=== PATIENT | male | born 1950 | race Caucasian/White ===

== ENCOUNTER 2019-09-25 12:03 | Outpatient (CLI) | payer MEDICARE, SELFPAY ==
--- NOTE | ~2019-09-25 | US_ITS ---
EXAMINATION: US renal BI DATE: 09/25/2019 13:01 INDICATION: Lower abdominal pain, nephrolithiasis and hematuria. TECHNIQUE: Multiple ultrasound grayscale images of the kidneys were obtained. COMPARISON: None. FINDINGS: The right kidney measures 11.0 x 5.1 x 6.5 cm. The left kidney measures 10.7 x 7.0 x 6.4 cm. The kidn eys demonstrate normal echogenicity. 2.0 cm anechoic cephalic cyst at the lower pole of the right kid shubham. There is no hydronephrosis in either kidney. No narrowing renal stones identified. The bladder is normal. Prostatomegaly. IMPRESSION: 1. 2 cm right renal cyst. Otherwise normal kidneys with no hydronephrosis. Reviewed, dictated and finalized at location A.
== END 2019-09-25 12:04 | disposition home or self-care (01) ==
LOC: CHSIMG 12:06
PROVIDERS: PCP Family Medicine; Visit Provider Nurse Practitioner Family
DX: R10.30 Lower abdominal pain, unspecified (principal); R31.9 Hematuria, unspecified
CPT/HCPCS: 76775

== ENCOUNTER 2019-10-17 09:34 | Emergency (ER) | payer MEDICARE, OTHER, SELFPAY ==
--- NOTE | ~2019-10-17 | XR_ITS ---
EXAMINATION: XR abdomen/kub 1V INDICATION: Right ureteral stone TECHNIQUE: Supine views of the abdomen were obtained on 2 radiographs. COMPARISON: CT from today FINDINGS: A 6 mm stone projects in the proximal/mid right ureter projecting just above the right L5 t ransverse process. A 4 mm stone is seen in the upper pole of the right kidney. The bowel gas pattern is normal. Phleboliths are noted in the left pelvis. IMPRESSION: 1. 6 mm stone projecting in the proximal/mid right ureter just above the right L5 transverse process. Reviewed, dictated and finalized at location A.
--- NOTE | ~2019-10-17 | CT_ITS ---
EXAMINATION: CT abdomen pelvis wo con DATE: 10/17/2019 11:30 INDICATION: Right flank pain TECHNIQUE: Computed tomography (CT) of the abdomen and pelvis was performed without intravenous contr ast. The dose-length product (DLP) was 240.48 mGy-cm. Automated exposure control and iterative recons truction technique were employed. COMPARISON: 08/17/2016 FINDINGS: Minimal dependent atelectasis is present in the lung bases. The heart size is normal. The h eart size is normal. Coronary artery stents are noted. The liver, spleen, pancreas, and adrenal gland s are normal. Stones are present in the nondistended gallbladder. There is a 6 mm stone in the proxim al right ureter which causes mild hydronephrosis. A 4 mm nonobstructing stone is seen in the right ki dney upper pole. There are punctate nonobstructing stones of the left kidney lower pole. There is a 2 .1 cm cyst of the right kidney. No pathologically enlarged abdominal or pelvic lymph nodes are identi fied. There is no free intraperitoneal gas or evidence of bowel obstruction. The prostate is moderate ly enlarged. There is mild lumbar spondylosis. IMPRESSION: 1. 6 mm stone in the proximal right ureter causing mild right hydronephrosis. Consider KUB for treatm ent planning purposes. 2. Bilateral nonobstructing nephrolithiasis. 3. Cholelithiasis without evidence of cholecystitis. Reviewed, dictated and finalized at location A. IMPRESSION: 1. 6 mm stone in the proximal right ureter causing mild right hydronephrosis. C onsider KUB for treatment planning purposes. 2. Bilateral nonobstructing nephrolithiasis. 3. Cholelithiasis without evidence of cholecystitis.
[2019-10-17 10:06] VITALS: BP 144/73; PULSE 48; RESP 18; TEMP 36.6; O2SAT 94
--- NOTE | 2019-10-17 10:27 | ED.ABDPAIN ---
HPI - Abdominal Pain General Chief Complaint: Abdominal Pain Stated Complaint: kidney stones Source: patient Mode of arrival: ambulatory Limitations: no limitations History of Present Illness HPI narrative: 68-year-old male complains of suprapubic pain radiating into both sides of his lower back. It started at 6:30 a.m., current pain rated 9/10 it waxes and wanes getting as low as 6/10. The pain is achy like a toothache but at times can be sharp. He had similar pain in August and September. The pain got more severe on September the . Urinalysis nitrate negative. No growth on the urinalysis. He states he took nitrofurantoin for about 5 days or so the pain resolved after a couple days and he remained pain- free until the the recurrence this morning. This morning he has slight discomfort with urination. this pain is associated with a minor discomfort in the inguinal area more on the right than the left. He is wondering if this could be kidney stones. He denies fevers chills lightheadedness body aches nausea vomiting constipation diarrhea. Related Data Home Medications Medication Instructions Recorded Confirmed aspirin 81 mg tablet,delayed 81 mg PO DAILY 06/18/19 10/17/19 release insulin glargine 100 unit/mL 80 unit SUB-Q DAILY ml 06/18/19 10/17/19 subcutaneous solution metoprolol succinate 50 mg 50 mg PO DAILY 06/18/19 10/17/19 tablet,extended release 24 hr Allergies Allergy/AdvReac Type Severity Reaction Status Date / Time adhesive Allergy Intermediate blistering Verified 09/25/19 10:10 of skin caffeine Allergy Intermediate Unknown Verified 09/25/19 10:10 Review of Systems Constitutional: Constitutional: Denies chills and Denies fever(s) ENT: Reports system reviewed and no additional complaints, except as documented Cardiovascular: Cardiovascular: Denies chest pain Respiratory: Respiratory: Denies dyspnea Gastrointestinal: Gastrointestinal: Reports no additional gastrointestinal complaints Genitourinary: Genitourinary: Reports no additional male genitourinary complaints Musculoskeletal: Musculoskeletal: Reports no additional musculoskeletal complaints Integumentary/Breasts: Skin/Breast: Reports system reviewed and no additional complaints, except as docu Neurologic: Reports system reviewed and no additional complaints, except as documented [facility] Past Medical History Medical History (Updated 10/18/19 @ 00:00 by Background Daemon) CAD (coronary artery disease) DM2 (diabetes mellitus, type 2) Hyperlipidemia Hypertension Lower abdominal pain Myocardial infarction 2002 [place] (obstructive sleep apnea) Osteoarthritis Polycythemia Surgical History Surgical History History of coronary angioplasty 2016 History of left knee surgery ACL Reconstruction History of right knee surgery Meniscus Removal History of shoulder surgery Right Shoulder Impingment History of total right knee replacement (TKR) Social History Social History Smoking status: Never smoker Substance use: never Additional living arrangements comments: . No children. 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 : General: Yes no CVA tenderness Penis: Yes normal penis Testes: epididymides normal, no testicular swelling and testicular tenderness (minor, bilateral) Other: Prostate is not enlarged for age. It is nontender, not warm. Back/Spine/Pelvis: Back: no CVA tenderness Skin: General skin exam: normal color Extrem: General: normal to inspection
[2019-10-17 10:44] LABS: Basophils Absolute Auto 0.05 K/mm3 (0.00-0.10); Basophils Percent Auto 0.6 % (0.0-1.0); Eosinophils Absolute Auto 0.23 K/mm3 (0.02-0.50); Eosinophils Percent Auto 2.7 % (1.0-6.0); Hematocrit 50.8 % (37.0-46.0); Hemoglobin 16.9 g/dL (12.4-15.3); Immature Granulocyte Absolute 0.03 K/mm3 (0.00-0.00); Immature Granulocyte Percent A 0.4 % (0.0-0.0); Lymphocytes Absolute Auto 1.26 K/mm3 (1.10-4.50); Mean Corpuscular HGB Conc 33.3 g/dL (32.0-36.0); Mean Corpuscular Volume 87.1 fL (78.0-102.0); Mean Platelet Volume 9.8 fl (8.7-11.0); Monocytes Absolute Auto 0.53 K/mm3 (0.10-0.90); Monocytes Percent Auto 6.3 % (2.0-11.0); Neutrophils Absolute Auto 6.3 K/mm3 (1.7-7.2); Platelet Count Result 192 K/mm3 (150-420); Red Blood Count 5.83 M/mm3 (4.70-6.10); Red Cell Distribution Width 13.4 % (11.6-14.4); White Blood Count 8.4 K/mm3 (4.8-10.8)
[2019-10-17 10:45] LABS: Add Urine Microscopic? YES; Appearance Urine Clear (Clear); Bilirubin Urine Negative (Negative); Blood Urine 2+ (Negative); Color Urine Yellow (Yellow); Glucose Urine UA Negative (Negative); Ketones Urine 1+ (Negative); Leukocyte Esterase Ur Negative (Negative); Nitrate Urine Negative (Negative); Protein Urine Trace (Negative); Specific Grav Ur 1.025 (1.010-1.020); Urobilinogen Urine 0.2 mg/dL (0.2-1.0); pH Urine 5.5 (5.0-8.0)
[2019-10-17] MEDS: MORPHINE SULFATE 4 MG/ML INJ 6 MG IV PUSH (10:46)
[2019-10-17 10:55] LABS: Bacteria Urine Trace /hpf; Mucus Urine Moderate /lpf; WBC Urine 0-3 /hpf (0-3)
[2019-10-17 11:03] LABS: Alanine Aminotransferase 58 U/L (16-63); Albumin Level 3.8 g/dL (3.4-5.0); Alkaline Phosphatase 46 U/L (46-116); Anion Gap 14.3 mmol/L (7-16); Aspartate Amino Transferase 21 U/L (15-37); Bilirubin,Total 0.5 mg/dL (0.00-1.00); Blood Urea Nitrogen 24 mg/dL (7-18); Calcium 9.1 mg/dL (8.5-10.1); Carbon Dioxide 26 mmol/L (21-32); Chloride 106 mmol/L (98-108); Estimated CRCL calculation 59 ml/min; Estimated Glomerular Filt Rate > 60; Glucose 171 mg/dL (70-99); Osmolality Calculated 302 mOsm/kg (285-295); Potassium 4.3 mmol/L (3.5-5.1); Sodium 142 mmol/L (136-145); Total Protein 6.7 g/dL (6.4-8.2)
[2019-10-17 11:09] LABS: Lipase 52 U/L (73-393)
[2019-10-17] MEDS: KETOROLAC 30 MG/ML VIAL (*BKC) IV PUSH (11:31)
--- NOTE | 2019-10-17 13:04 | PC.NURSE ---
CALL PLACED TO DR BECKHAM EXCHANGE - DR ANDINO RETURNS CALL
[2019-10-17 13:20] VITALS: BP 155/79
== END 2019-10-17 13:21 | disposition home or self-care (01) ==
PROVIDERS: Emergency Provider Family Medicine; PCP Family Medicine
DX: N20.0 Calculus of kidney (principal); I25.10 Atherosclerotic heart disease of native coronary artery without angina pectoris; E11.9 Type 2 diabetes mellitus without complications; E78.5 Hyperlipidemia, unspecified; I10 Essential (primary) hypertension
CPT/HCPCS: 36415; 74018; 74176; 80053; 81001; 83690; 85025; 96374; 96375; 99284; J1885; J2270

== ENCOUNTER 2019-10-19 09:37 | Emergency (ER) | payer MEDICARE, OTHER, SELFPAY ==
--- NOTE | ~2019-10-19 | XR_ITS ---
EXAMINATION: XR abdomen/kub 1V DATE: 10/19/2019 11:54 INDICATION: Right-sided ureterolithiasis TECHNIQUE: A supine view of the abdomen on 2 radiographs was obtained. COMPARISON: 10/17/2019 FINDINGS: No significant interval change in a triangular 6 mm stone in the proximal to mid right ureter project ing slightly cephalad to the right transverse process of L5. Unchanged 4 mm stone projecting over the upper pole of the right kidney. No left-sided urolithiasis. Unchanged pattern of small phleboliths i n the left hemipelvis. Normal bowel gas pattern. Lung bases are clear. Heart size is normal. Median s ternotomy wires and mediastinal surgical clips are seen, likely from prior coronary artery bypass gra fting. IMPRESSION: 1. Unchanged 4 mm right renal stone and 6 mm stone in the proximal to mid right ureter. Reviewed, dictated and finalized at location A.
[2019-10-19 09:39] VITALS: BP 144/78; PULSE 69; RESP 16; TEMP 36.6; O2SAT 96
[2019-10-19 09:56] LABS: Basophils Percent Auto 0.4 % (0.2-1.2); Eosinophils Absolute Auto 0.2 K/mm3 (0-0.3); Eosinophils Percent Auto 2.3 % (0-4.4); Hematocrit 49.3 % (42.0-52.0); Hemoglobin 16.6 g/dL (14.0-18.0); Immature Granulocyte Absolute 0.06 K/mm3 (0.00-0.031); Immature Granulocyte Percent A 0.6 % (0-0.5); Lymphocytes Absolute Auto 1.62 K/mm3 (0.9-3.2); Lymphocytes Percent Auto 15.6 % (18.3-44.2); Mean Corpuscular HGB Conc 33.7 g/dl (32-36); Mean Corpuscular Hemoglobin 29.3 pg (26-34); Mean Corpuscular Volume 87.1 fl (80-100); Monocytes Absolute Auto 0.8 K/mm3 (0.1-0.6); Monocytes Percent Auto 7.5 % (2.6-8.5); Neutrophils Absolute Auto 7.7 K/mm3 (1.3-6.7); Neutrophils Percent Auto 73.6 % (45.5-73.1); Platelet Count Result 162 k/mm3 (150-375); Red Blood Count 5.66 M/mm3 (4.6-6.20); Red Cell Distribution Width 13.4 % (11.5-14.5); White Blood Count 10.4 K/mm3 (4.5-10.0)
[2019-10-19 10:02] LABS: Add Urine Microscopic? YES; Appearance Urine Clear (Clear); Bilirubin Urine Negative (Negative); Blood Urine Negative (Negative); Color Urine Amber (Yellow); Glucose Urine UA 1+ mg/dL (Negative); Ketones Urine Negative (Negative); Leukocyte Esterase Ur Negative LEU/UL (Negative); Mucus Urine Rare /lpf; Nitrate Urine Negative (Negative); Protein Urine Negative (Negative); Specific Grav Ur 1.024 (1.001-1.035); Squamous Epithelial Cell Urine Rare /hpf (Few); Urobilinogen Urine Negative mg/dL (<2.0)
[2019-10-19 10:08] LABS: Blood Urea Nitrogen 30 mg/dL (9-20); Calcium 9.4 mg/dL (8.4-10.2); Carbon Dioxide 25 mmol/L (22-30); Chloride 104 mmol/L (98-107); Estimated CRCL calculation 39 ml/min; Estimated Glomerular Filt Rate 43; Glucose 183 mg/dL (75-110); Potassium 4.1 mmol/L (3.4-5.0); Sodium 136 mmol/L (137-145)
--- NOTE | 2019-10-19 10:56 | ED.ABDPAIN ---
HPI - Abdominal Pain General Chief Complaint: Abdominal Pain Stated Complaint: Kidney Stone Pain Time Seen by Provider: 10/19/19 10:32 Source: patient Mode of arrival: ambulatory Limitations: no limitations History of Present Illness HPI narrative: Patient is a 68-year-old male presents to the emergency department with complaint of right flank pain. Patient reports prior history of kidney stones. Patient states he had episode of dark color to his urine in late August for which he took 3 days worth of Cipro he had at home and drink plenty of fluids. Patient had onset of right-sided flank pain, predominantly in the back in early September. Patient states the pain had persisted and was worsening, thus he had a telephone appointment with primary care office. He states they did an ultrasound and a urine sample and put him on nitrofurantoin for prostate infection. Patient had renal ultrasound completed on 09/25/2019 which showed no hydronephrosis or other abnormalities aside from a renal cyst. Urinalysis at that time showed blood and culture was negative for any infection. Patient had worsening of his symptoms 2 days ago and was seen in the emergency department at [facility]. Patient had CT scan completed which showed a 6 mm stone in the proximal right ureter with mild hydronephrosis. Patient was noted to have bilateral nonobstructing nephrolithiases additionally. Patient was planning to call Dr. Longoria's office today to schedule an appointment, but presented to the emergency department here at [place] due to worsening symptoms not alleviated by naproxen and [place] that he took at approximately 6 this morning. MD elicited complaint: flank pain Pertinent past history: kidney stones Onset (ago): month(s) (1.5) Pain Consistency: intermittent and other (now worsening) Location: R flank Radiation: other (right groin) Context: confirms recent antibiotic use and confirms history of similar episodes Associated symptoms: nausea Treatments prior to arrival: NSAIDs and prescription analgesics ([place]) Related Data Home Medications Medication Instructions Recorded Confirmed aspirin 81 mg tablet,delayed 81 mg PO DAILY 06/18/19 10/17/19 release insulin glargine 100 unit/mL 80 unit SUB-Q DAILY ml 06/18/19 10/17/19 subcutaneous solution metoprolol succinate 50 mg 50 mg PO DAILY 06/18/19 10/17/19 tablet,extended release 24 hr Allergies Allergy/AdvReac Type Severity Reaction Status Date / Time adhesive Allergy Intermediate blistering Verified 10/19/19 09:42 of skin caffeine Allergy Intermediate Unknown Verified 10/19/19 09:42 Review of Systems Review of Systems: All systems reviewed & are unremarkable except as noted in HPI and below Gastrointestinal: Gastrointestinal: Reports abdominal pain and Reports nausea Genitourinary: Genitourinary: Reports hematuria Musculoskeletal: Musculoskeletal: Reports back pain [facility] Past Medical History Medical History (Updated 10/19/19 @ 15:04 by Tiffanie Reeves MD) CAD (coronary artery disease) DM2 (diabetes mellitus, type 2) Hyperlipidemia Hypertension Kidney stones Lower abdominal pain Myocardial infarction 2002 [place] (obstructive sleep apnea) Osteoarthritis Polycythemia Surgical History Surgical History History of colonoscopy with polypectomy History of coronary angioplasty 2016 History of left knee surgery ACL Reconstruction History of right knee surgery Meniscus Removal History of shoulder surgery Right Shoulder Impingment History of total right knee replacement (TKR) Social History Social History Smoking status: Never smoker Substance use: never Additional living arrangements comments: . No children. 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
[2019-10-19] MEDS: ONDANSETRON INJ 4 MG/2 ML VIAL IV PUSH (11:15)
[2019-10-19] MEDS: LACTATED RINGERS 1,000 ML 150 ML IV CONT (11:34)
[2019-10-19 12:54] VITALS: BP 131/71; PULSE 60; RESP 16; TEMP 37.1; O2SAT 94
[2019-10-19 15:15] VITALS: BP 120/64; PULSE 56; RESP 16; TEMP 36.8; O2SAT 95
== END 2019-10-19 15:06 | disposition home or self-care (01) ==
PROVIDERS: Emergency Provider Emergency Medicine; PCP Family Medicine
DX: N20.2 Calculus of kidney with calculus of ureter (principal); Z87.442 Personal history of urinary calculi; I25.10 Atherosclerotic heart disease of native coronary artery without angina pectoris; E11.9 Type 2 diabetes mellitus without complications; E78.5 Hyperlipidemia, unspecified; I10 Essential (primary) hypertension; I25.2 Old myocardial infarction; G47.33 Obstructive sleep apnea (adult) (pediatric); M19.90 Unspecified osteoarthritis, unspecified site; D75.1 Secondary polycythemia; Z98.61 Coronary angioplasty status; Z96.651 Presence of right artificial knee joint; Z79.82 Long term (current) use of aspirin; Z79.4 Long term (current) use of insulin
CPT/HCPCS: 36415; 74018; 80048; 81001; 85025; 96361; 96365; 96375; 99284; A9270; J0131; J2405; J3010; J7120

== ENCOUNTER 2019-10-20 01:44 | Day surgery (SDC) | payer MEDICARE, OTHER, SELFPAY ==
[2019-10-19 15:56] VITALS: BMI 28.9
[2019-10-20] VITALS (7 sets, daily range): BP systolic 116–155; BP diastolic 57–80; PULSE 63–92; RESP 12–20; TEMP 36.8–37.1; O2SAT 96–99
--- NOTE | ~2019-10-20 | XR_ITS ---
EXAMINATION: XR abdomen/kub 1V DATE: 10/20/2019 10:48 INDICATION: Nephrolithiasis. Preoperative evaluation. TECHNIQUE: A supine view of the abdomen on 2 radiographs was obtained. COMPARISON: None. FINDINGS: No significant interval change in a triangular 6 mm stone in the proximal to mid right ureter project ing slightly cephalad to the right transverse process of L5. Unchanged 4 mm stone projecting over the upper pole of the right kidney. No left-sided urolithiasis. Unchanged pattern of small phleboliths i n the left hemipelvis. Normal bowel gas pattern. IMPRESSION: 1. Unchanged 4 mm right renal stone and 6 mm stone in the proximal to mid right ureter. Reviewed, dictated and finalized at location A.
--- NOTE | ~2019-10-20 | XR_ITS ---
EXAMINATION: XR stent kub - surgery INDICATION: Right ureteral stone TECHNIQUE: Four intraoperative fluoroscopic images are submitted for review. Fluoroscopy exposure riaz e was 19.9 seconds. The DAP for this procedure was [id number] mGym2. COMPARISON: None available FINDINGS: Fluoroscopic images demonstrate placement of a right internal ureteral stent in expected po sition. Please refer to procedure note for full details. IMPRESSION: 1. Right internal ureteral stent in expected position. Please refer to procedure note for full detail s. Reviewed, dictated and finalized at location A. IMPRESSION: 1. Right internal ureteral stent in expected position. Please refer to procedur e note for full details.
[2019-10-20] MEDS: LACTATED RINGERS 1,000 ML 30 ML IV CONT (10:10)
[2019-10-20 10:12] LABS: Glucose Point of Care 95 (65-105)
[2019-10-20] MEDS: ONDANSETRON INJ 4 MG/2 ML VIAL IV PUSH (10:33)
--- NOTE | 2019-10-20 10:41 | WPDANESEPPF ---
Anes - Initial Pre Proc Eval Procedure: Operation Date: 10/20/19 12:00 Proposed Procedures p Cystoscopy, Right Stent Placement - Manpreet Patel MD Date/Time: 10/20/19 10:41 Surgeon: Manpreet Patel MD Pre Op Diagnosis: Right Kidney Stone Patient Data Age: 68 Gender: M Height: 5 ft 8 in Weight: 86.36 kg Allergies Allergy/AdvReac Type Severity Reaction Status Date / Time adhesive Allergy Intermediate blistering Verified 10/19/19 09:42 of skin caffeine Allergy Intermediate Unknown Verified 10/19/19 09:42 Home Medications Medication Instructions Recorded Confirmed Type isosorbide mononitrate 60 mg 90 mg PO DAILY #135 tablet 05/11/19 10/19/19 Rx tablet,extended release 24 hr lisinopril 10 mg tablet 10 mg PO DAILY #90 tablet 05/11/19 10/19/19 Rx metformin 500 mg tablet 500 mg PO BID #180 tablet 05/11/19 10/19/19 Rx aspirin 81 mg tablet,delayed 81 mg PO DAILY 06/18/19 10/19/19 History release insulin glargine 100 unit/mL 80 unit SUB-Q HS ml 06/18/19 10/19/19 History subcutaneous solution metoprolol succinate 50 mg 50 mg PO DAILY 06/18/19 10/19/19 History tablet,extended release 24 hr lovastatin 40 mg tablet 40 mg PO DAILY #90 tablet 06/29/19 10/19/19 Rx clopidogrel 75 mg tablet 75 mg PO DAILY #90 tablet 07/10/19 10/19/19 Rx sitagliptin 100 mg tablet See Rx Instructions .ROUTE 10/05/19 10/19/19 Rx .COMPLEX #90 tablet hydrocodone-acetaminophen [[place]] 2 tablet PO Q6H PRN #16 tablet 10/17/19 10/19/19 Rx tamsulosin 0.4 mg capsule 0.4 mg PO DAILY #90 cap 10/19/19 10/19/19 Rx Laboratory Tests 10/20/19 10:09 POC Capillary Glucose 95 mg/dl mg/dl (65-105) Patient hx anesthesia problems: none Family hx anesthesia problems: none PMFSH Past Medical History Medical History CAD (coronary artery disease) DM2 (diabetes mellitus, type 2) Hyperlipidemia Hypertension Kidney stones Lower abdominal pain Myocardial infarction 2002 [place] (obstructive sleep apnea) Osteoarthritis Polycythemia Surgical History Surgical History History of colonoscopy with polypectomy History of coronary angioplasty 2016 History of left knee surgery ACL Reconstruction History of right knee surgery Meniscus Removal History of shoulder surgery Right Shoulder Impingment History of total right knee replacement (TKR) Family History Family History Mother Diabetes mellitus Father Heart disease Social History Social History Smoking status: Never smoker Substance use: never Additional living arrangements comments: . No children. 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 Questions were solicited and answers provided to the satisfaction of the patient/family/POA.
--- NOTE | 2019-10-20 10:53 | SUR.PREOP ---
TO XRAY AT 1045 FOR KUB, RETURNED AT 1051
[2019-10-20] MEDS: ceFAZolin SODIUM 1 GM VIAL 2 GM IV PUSH (12:15)
[2019-10-20] MEDS: LIDOCAINE HCL 2% GEL UROJET 10 ML PKG MUCOUS MEM (12:16)
--- NOTE | 2019-10-20 12:29 | P.OP_ITS ---
Procedure Note - Detailed Date of procedure: 10/20/19 Pre-op diagnosis: Right Kidney Stone Right ureteral calculus 6 mm Post-op diagnosis: same Procedure performed: Cystoscopy, right ureteral stent placement 4.8 Armenian contour Description of procedure: Patient was taken to the operative suite. He was correctly identified. Once anesthesia was obtained was placed in the dorsal lithotomy position and prepped and draped in the usual sterile fashion. Twenty- two Armenian scope inserted into the bladder. There are no tumors noted. The right ureteral orifice was cannulated with a guidewire. It obviously it met some resistance at the stone. Once we were able to manipulate the wire past the stone we noted purulence coming from the ureteral orifice. At this point we decided to simply place a stent. A 4.8 contour stent was then placed with the proximal end coiled in the renal pelvis and the distal end in the bladder. Bladder was drained. 2% viscous lidocaine was inserted into the urethra. Patient is taken recovery stable condition. Plan is to allow things to settle down he will be discharged home with pain meds and antibiotics. Will obtain a culture in about 2-3 days. He will need a repeat ureteroscopy with holmium laser stone extraction at a later point time. 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 That will preclude us from doing lithotripsy Anesthesia: [place] Surgeon: Manpreet Patel MD Drains: Yes Packing: No Pathology: none sent Complications: No immediate complications Condition: stable Disposition: PACU
[2019-10-20 13:03] LABS: Glucose Point of Care 79 (65-105)
== END 2019-10-20 13:55 | disposition home or self-care (01) ==
PROVIDERS: PCP Family Medicine; Visit Provider Urology
PROC: (CPT 52352; principal; 2019-10-20 12:00)
DX: N20.0 Calculus of kidney (principal); I25.10 Atherosclerotic heart disease of native coronary artery without angina pectoris; I10 Essential (primary) hypertension; I25.2 Old myocardial infarction; E78.5 Hyperlipidemia, unspecified; E11.9 Type 2 diabetes mellitus without complications; G47.33 Obstructive sleep apnea (adult) (pediatric); M19.90 Unspecified osteoarthritis, unspecified site; Z79.82 Long term (current) use of aspirin; Z79.02 Long term (current) use of antithrombotics/antiplatelets; Z79.4 Long term (current) use of insulin
CPT/HCPCS: 52332; 74018; A9270; C1758; C1769; C2617; J0690; J1100; J2001; J2405; J2704; J3010; J7120

== ENCOUNTER 2019-11-07 00:52 | Outpatient (CLI) | payer MEDICARE, OTHER, SELFPAY ==
[2019-11-07 16:39] LABS: SARS-CoV-2 RNA PCR Negative
== END 2019-11-07 00:53 | disposition home or self-care (01) ==
LOC: ANHCOVIDDT 00:52
PROVIDERS: PCP Family Medicine; Visit Provider Urology
DX: Z01.818 Encounter for other preprocedural examination (principal); Z11.59 Encounter for screening for other viral diseases
CPT/HCPCS: 87635; C9803; U0003

== ENCOUNTER 2019-11-09 10:39 | Outpatient (CLI) | payer MEDICARE, OTHER, SELFPAY ==
--- NOTE | 2019-11-09 10:41 | ECG_ITS ---
Measurements Intervals [place] Rate: 67 P: 37 FL: 193 QRS: 74 QRSD: 102 T: 31 QT: 378 QTc: 400 Interpretive Statements SINUS RHYTHM CONSIDER INFERIOR INFARCT, AGE INDETERMINATE BORDERLINE T WAVE ABNORMALITY- ANTERIOR LEADS ABNORMAL ECG Electronically Signed On 11-09-2019 11:12:13 CDT by Govind Vargas D.O.
== END 2019-11-09 10:40 | disposition home or self-care (01) ==
LOC: ANHSURGERY 10:41
PROVIDERS: PCP Family Medicine; Visit Provider Urology
DX: Z01.810 Encounter for preprocedural cardiovascular examination (principal); I10 Essential (primary) hypertension; R94.31 Abnormal electrocardiogram [ECG] [EKG]
CPT/HCPCS: 93005

== ENCOUNTER 2019-11-10 01:07 | Day surgery (SDC) | payer MEDICARE, OTHER, SELFPAY ==
[2019-11-06 12:43] VITALS: BMI 28.8
[2019-11-10] VITALS (8 sets, daily range): BP systolic 103–153; BP diastolic 50–77; PULSE 51–69; RESP 12–16; TEMP 36.1–36.6; O2SAT 95–100
--- NOTE | ~2019-11-10 | XR_ITS ---
EXAMINATION: XR retrograde pyelo w/stent RT DATE: 11/10/2019 13:53 INDICATION: Right internal ureteral stent placement TECHNIQUE: Fluoroscopic images from a right internal ureteral stent placement are submitted for vadim pickett 12 seconds of fluoroscopy time. 7 fluoroscopic images. FINDINGS: There is a right double-J internal ureteral stent projecting in expected position, with proximal Lincoln loop at the level of the renal pelvis and distal loop in the pelvis within the bladder lumen. IMPRESSION: 1. Right internal ureteral stent placement. Please refer to real-time procedural findings for namita echeverria. Reviewed, dictated and finalized at location A. IMPRESSION: 1. Right internal ureteral stent placement. Please refer to real-time procedu ral findings for details.
--- NOTE | 2019-11-10 11:12 | WPDHPUPDATE1 ---
History and Physical Update Update Date/Time: 11/10/19 11:12 History and Physical has been reviewed, including an updated exam of the patient. There are NO changes in the patient's condition. Risks, benefits, and alternatives have been discussed and questions answered. Patient agrees to proceed with procedure.
[2019-11-10] MEDS: LACTATED RINGERS 1,000 ML 30 ML IV CONT ×2 (11:40→13:57)
[2019-11-10 11:43] LABS: Glucose Point of Care 107 (65-105)
--- NOTE | 2019-11-10 12:10 | WPDANESEPPF ---
Anes - Initial Pre Proc Eval Procedure: Operation Date: 11/10/19 14:00 Proposed Procedures p Cystoscopy, Right Retrograde Pyelogram, Right Ureteroscopy, Right Stent Exchange - Manpreet Patel MD s With Holmium Laser - Manpreet Patel MD Date/Time: 11/10/19 12:10 Surgeon: Manpreet Patel MD Pre Op Diagnosis: right ureteral stone Patient Data Age: 68 Gender: M Height: 5 ft 8 in Weight: 84 kg Last Vital Signs Temp 36.6 C 11/10/19 11:53 Pulse 65 11/10/19 11:53 Resp 16 11/10/19 11:53 BP 103/50 L 11/10/19 11:53 Pulse Ox 96 11/10/19 11:53 Allergies Allergy/AdvReac Type Severity Reaction Status Date / Time caffeine Allergy Severe THROAT Verified 11/10/19 11:26 SWELLING ,HIVES adhesive Allergy Intermediate blistering Verified 11/10/19 11:26 of skin Home Medications Medication Instructions Recorded Confirmed Type lisinopril 10 mg tablet 10 mg PO DAILY #90 tablet 05/11/19 11/10/19 Rx metformin 500 mg tablet 500 mg PO BID #180 tablet 05/11/19 11/10/19 Rx aspirin 81 mg tablet,delayed 81 mg PO DAILY 06/18/19 11/10/19 History release insulin glargine 100 unit/mL 80 unit SUB-Q HS ml 06/18/19 11/10/19 History subcutaneous solution metoprolol succinate 50 mg 50 mg PO DAILY 06/18/19 11/10/19 History tablet,extended release 24 hr clopidogrel 75 mg tablet 75 mg PO DAILY #90 tablet 07/10/19 11/10/19 Rx tamsulosin 0.4 mg capsule 0.4 mg PO DAILY #90 cap 10/19/19 11/10/19 Rx Januvia 100 mg PO DAILY 11/06/19 11/10/19 History coQ10 (ubiquinol) 100 mg PO DAILY 11/06/19 11/10/19 History fluticasone propionate [Flonase 2 spray INTRANASAL DAILY 11/06/19 11/10/19 History Allergy Relief] isosorbide mononitrate 90 mg PO HS 11/06/19 11/10/19 History lovastatin 40 mg PO HS 11/06/19 11/10/19 History multivitamin,nd-rlcu-sedgvmsa 1 tablet PO DAILY 11/06/19 11/10/19 History [Complete Multivitamin] omega 0-skt-xms-fish oil [Fish Oil] 1 cap PO DAILY 11/06/19 11/10/19 History cephalexin 500 mg PO BID 11/10/19 11/10/19 History Laboratory Tests 11/10/19 11:36 POC Capillary Glucose 107 mg/dl mg/dl (65-105) Patient hx anesthesia problems: none Family hx anesthesia problems: none PMFSH Social History Social History Smoking status: Never smoker Substance use: never Additional living arrangements comments: . No children. 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 Questions were solicited and answers provided to the satisfaction of the patient/family/POA.
[2019-11-10] MEDS: ceFAZolin 2 GM/D5W 50 ML 2 GM/50 ML BAG IVPB (13:00)
[2019-11-10] MEDS: LIDOCAINE HCL 2% GEL UROJET 10 ML PKG MUCOUS MEM (13:18)
--- NOTE | 2019-11-10 13:52 | P.OP_ITS ---
Procedure Note - Detailed Date of procedure: 11/10/19 Pre-op diagnosis: right ureteral stone Post-op diagnosis: same Procedure performed: Cystoscopy, right retrograde pyelogram, right ureteroscopy with holmium laser, stone extraction, right ureteral stent exchange 4.8 Martiniquais Description of procedure: Patient was taken to the operative suite and correctly identified. He was placed in the dorsal lithotomy position once anesthesia was obtained. Nineteen Martiniquais scope was inserted into the bladder. The previously placed stent was grasped and brought out the meatus. A guidewire was passed through this. The ureteral access sheath was then inserted. Mini flexible ureteral scope was passed up the sheath and the stone was visualized. It was too large to retrieve 1 piece. Using a 200 micron fiber the stone was lasered into multiple pieces. These were extracted and sent for analysis. Reinspection revealed no residual ureteral stones. Pyelogram was then performed to confirm placement of the stent. A 4.8 contour stent was then placed with the proximal end coiled in the renal pelvis and the distal in the bladder. 2% viscous lidocaine was inserted in the urethra after the bladder was drained. Patient is taken recovery in stable condition. We discharged home with pain meds antibiotic. A follow-up in a week's time for stent removal. Call for that appointment. Anesthesia: GLMA Surgeon: Manpreet Patel MD Drains: Yes Packing: No Pathology: yes Complications: No immediate complications Condition: stable Disposition: PACU
[2019-11-10 14:43] LABS: Glucose Point of Care 71 (65-105)
== END 2019-11-10 15:50 | disposition home or self-care (01) ==
PROVIDERS: PCP Family Medicine; Visit Provider Urology
PROC: (CPT 52352; principal; 2019-11-10 14:00)
PROC: (CPT 52356; 2019-11-10 14:00)
DX: N20.1 Calculus of ureter (principal)
CPT/HCPCS: 52356; 74420; 82365; 88300; A9270; C1769; C1894; C2617; J0690; J1100; J2250; J2405; J2704; J3010; J7120; Q9966

== ENCOUNTER 2020-07-04 10:37 | Outpatient (CLI) | payer MEDICARE, OTHER, SELFPAY ==
--- NOTE | ~2020-07-04 | XR_ITS ---
XR abdomen/kub 1V DATE: 07/04/2020 10:54 INDICATION: Kidney calculus TECHNIQUE: AP projection, 2 views COMPARISON: 10/19/2019 KUB 10/17/[address] abdomen pelvis FINDINGS: Approximately 4 mm calcified stone is noted overlying the upper pole of the right kidney. P reviously reported right ureteral 6 mm calcified stone is no longer identified and presumably has pas sed. The psoas shadows are intact. No visceromegaly is evident. No bowel obstruction. Included skeletal structures are unremarkable other than some degenerative spurring of the thoracic s pine. IMPRESSION: 4 mm upper pole right renal calcified nonobstructing calculus Interval resolution of 6 mm calcified right mid ureteral calculus since 10/20/2019 Reviewed, dictated and finalized at Location A. Reviewed, dictated and finalized at location A. [facility] IMPRESSION: 4 mm upper pole right renal calcified nonobstructing calculus Interval resolution of 6 mm calcified right mid ureteral calculus since 10/20/19 20
== END 2020-07-04 10:38 | disposition home or self-care (01) ==
PROVIDERS: PCP Family Medicine; Visit Provider Urology
DX: N20.0 Calculus of kidney (principal)
CPT/HCPCS: 74018

== ENCOUNTER 2020-07-18 07:50 | Outpatient (CLI) | payer MEDICARE, SELFPAY ==
[2020-07-18 08:01] LABS: Hematocrit 51.8 % (37.0-46.0); Mean Corpuscular HGB Conc 32.8 g/dL (32.0-36.0); Mean Corpuscular Hemoglobin 28.6 pg (27.0-31.0); Mean Corpuscular Volume 87.1 fL (78.0-102.0); Mean Platelet Volume 9.9 fl (8.7-11.0); Platelet Count Result 216 K/mm3 (150-420); Red Blood Count 5.95 M/mm3 (4.70-6.10); Red Cell Distribution Width 13.4 % (11.6-14.4); White Blood Count 9.2 K/mm3 (4.8-10.8)
[2020-07-18 08:36] LABS: Hemoglobin A1C 5.6 % (<5.7)
== END 2020-07-18 07:51 | disposition home or self-care (01) ==
PROVIDERS: PCP Family Medicine; Visit Provider Family Medicine
DX: E11.9 Type 2 diabetes mellitus without complications (principal)
CPT/HCPCS: 36415; 83036; 85027

== ENCOUNTER 2022-01-09 07:17 | Outpatient (CLI) | payer MEDICARE, SELFPAY ==
[2022-01-09 07:43] LABS: Hemoglobin A1C 6.8 % (<5.7)
[2022-01-09 08:15] LABS: MALB Creatinine Ratio 24.3 mg/g (0-30)
[2022-01-09 08:25] LABS: Alanine Aminotransferase 100 U/L (16-63); Albumin Level 3.9 g/dL (3.4-5.0); Alkaline Phosphatase 60 U/L (46-116); Anion Gap 10 mmol/L (8-16); Aspartate Amino Transferase 34 U/L (15-37); Bilirubin,Total 0.6 mg/dL (0.00-1.00); Blood Urea Nitrogen 20 mg/dL (7-18); Calcium 9.1 mg/dL (8.5-10.1); Carbon Dioxide 27 mmol/L (21-32); Chloride 106 mmol/L (98-108); Cholesterol 140 mg/dL (0-200); Estimated Glomerular Filt Rate > 60; Glucose 129 mg/dL (70-99); HDL Direct 31 mg/dL (40-60); LDL Cholesterol Calculated 76 mg/dL (<130); Osmolality Calculated 300 mOsm/kg (285-295); Potassium 4.2 mmol/L (3.5-5.1); Sodium 143 mmol/L (136-145); Total Protein 6.7 g/dL (6.4-8.2); Triglycerides 163 mg/dL (0-150)
== END 2022-01-09 07:18 | disposition home or self-care (01) ==
LOC: CHSLAB 07:20
PROVIDERS: PCP Family Medicine; Visit Provider Family Medicine
DX: E11.9 Type 2 diabetes mellitus without complications (principal)
CPT/HCPCS: 36415; 80053; 80061; 82043; 83036

== ENCOUNTER 2022-05-17 15:21 | Outpatient (CLI) | payer MEDICARE, OTHER, SELFPAY ==
--- NOTE | ~2022-05-17 | XR_ITS ---
Lumbosacral Spine: AP and lateral views Clinical History: Pain Findings: The normal lordotic curve is maintained. The vertebral bodies and posterior elements are i ntact. The intervertebral disc spaces are preserved. Facet joint degenerative changes are present fr om L3 through S1. The sacroiliac joints are normally outlined. Impression: Facet joint degenerative changes, as detailed above. Reviewed, dictated and finalized at location [] CULTURAL RESEARCH ENGINEER Impression: Facet joint degenerative changes, as detailed above.
== END 2022-05-17 15:22 | disposition home or self-care (01) ==
LOC: CHSIMG 15:24
PROVIDERS: PCP Family Medicine; Visit Provider Family Medicine
DX: M54.50 Low back pain, unspecified (principal)
CPT/HCPCS: 72100

== ENCOUNTER 2023-06-28 11:40 | Outpatient (CLI) | payer MEDICARE, SELFPAY ==
[2023-06-28 12:44] LABS: Hemoglobin A1C 7.1 % (<5.7)
[2023-06-28 12:48] LABS: Creatinine Urine 166.08 mg/dL (40-278)
[2023-06-28 12:53] LABS: MALB Creatinine Ratio 91.6 mg/g (0-30); Microalbumin Urine Random 152.2 mg/L
[2023-06-28 13:08] LABS: Alanine Aminotransferase 110 U/L (16-63); Albumin Level 3.8 g/dL (3.4-5.0); Alkaline Phosphatase 62 U/L (46-116); Anion Gap 11 mmol/L (8-16); Aspartate Amino Transferase 47 U/L (15-37); Bilirubin,Total 0.6 mg/dL (0.00-1.00); Blood Urea Nitrogen 18 mg/dL (7-18); Calcium 9.4 mg/dL (8.5-10.1); Carbon Dioxide 27 mmol/L (21-32); Chloride 105 mmol/L (98-108); Estimated Glomerular Filt Rate > 60; Glucose 198 mg/dL (70-99); Osmolality Calculated 303 mOsm/kg (285-295); Potassium 4.7 mmol/L (3.5-5.1); Sodium 143 mmol/L (136-145); Total Protein 6.9 g/dL (6.4-8.2)
== END 2023-06-28 11:41 | disposition home or self-care (01) ==
LOC: CHSLAB 11:41
PROVIDERS: PCP Family Medicine; Visit Provider Family Medicine
DX: E11.9 Type 2 diabetes mellitus without complications (principal)
CPT/HCPCS: 36415; 80053; 82043; 83036

== ENCOUNTER 2023-07-05 08:23 | Outpatient (CLI) | payer MEDICARE, OTHER, SELFPAY ==
--- NOTE | ~2023-07-05 | US_ITS ---
Limited Abdominal Sonogram: Real-time sonographic imaging of the right upper quadrant was performed. Clinical History: Abnormal liver enzyme levels Findings: The liver appears echogenic, with no evidence of mass lesion or bile duct dilatation. Main portal vein demonstrates normal direction of flow. The gallbladder is well distended, and contains a small gallstone versus gallbladder polyp. No gallbladder wall thickening. The common bile duct measu res 4 mm. The visualized pancreas, aorta, and IVC are unremarkable. Impression: Single small gallstone versus gallbladder polyp. Diffuse fatty infiltration of liver. Reviewed, dictated and finalized at location M. CUTTER Impression: Single small gallstone versus gallbladder polyp. Diffuse fatty infiltration of liver.
[2023-07-09 15:11] LABS: Hepatitis A Antibody IgM Nonreactive; Hepatitis B Core Antibody Nonreactive (Nonreactive); Hepatitis B Surface Antigen Nonreactive (Nonreactive); Hepatitis C Virus Antibody Nonreactive
== END 2023-07-05 08:24 | disposition home or self-care (01) ==
PROVIDERS: PCP Family Medicine; Visit Provider Family Medicine
DX: R74.01 Elevation of levels of liver transaminase levels (principal); K76.0 Fatty (change of) liver, not elsewhere classified
CPT/HCPCS: 36415; 76705; 80074

== ENCOUNTER 2023-10-03 10:01 | Emergency (ER) | payer MEDICARE, OTHER, SELFPAY ==
--- NOTE | ~2023-10-03 | CT_ITS ---
EXAMINATION: CT abdomen pelvis wo con DATE: 10/03/2023 10:32 INDICATION: Left flank pain. Status post trauma. TECHNIQUE: Computed tomography (CT) of the abdomen and pelvis was performed without intravenous contr ast. The dose-length product was 807.01 mGy-cm. Automated exposure control and iterative reconstructi on technique were employed. COMPARISON: CT dated 10/17/2019 FINDINGS: There is bilateral lower lobe atelectasis. Heart size normal. There is atherosclerosis of t he aorta and coronary arteries. No significant pleural or pericardial effusion. There are gallstones. Fatty infiltration of the liver. The spleen, pancreas, adrenal glands are unremarkable. There are bi lateral nonobstructing renal stones. There are right renal cysts. Nonobstructive bowel gas pattern. N o free air or free fluid. No significant vascular abnormality. No lymphadenopathy. Mild lower thoraci c and lumbar spondylosis. IMPRESSION: 1. No acute abdominal abnormality. 2: Nonobstructing bilateral nephrolithiasis. Reviewed, dictated and finalized at location B.
[2023-10-03 10:01] VITALS: BP 129/71; PULSE 68; RESP 17; TEMP 36.9; O2SAT 96
--- NOTE | 2023-10-03 10:10 | PC.NURSE ---
lab at bedside.
--- NOTE | 2023-10-03 10:20 | PC.NURSE ---
patient being taken down to Ct.
[2023-10-03 10:30] VITALS: BP 116/68; PULSE 60; RESP 17; O2SAT 94
--- NOTE | 2023-10-03 10:34 | PC.NURSE ---
Patient back in room from Ct.
[2023-10-03 10:36] LABS: Basophils Absolute Auto 0.06 K/mm3 (0.00-0.10); Basophils Percent Auto 0.7 % (0.0-1.0); Eosinophils Absolute Auto 0.26 K/mm3 (0.02-0.50); Eosinophils Percent Auto 3.2 % (1.0-6.0); Hemoglobin 16.3 g/dL (12.4-15.3); Immature Granulocyte Absolute 0.04 K/mm3 (0.00-0.00); Immature Granulocyte Percent A 0.5 % (0.0-0.0); Lymphocytes Absolute Auto 1.63 K/mm3 (1.10-4.50); Lymphocytes Percent Auto 20.2 % (18.0-42.0); Mean Corpuscular HGB Conc 32.6 g/dL (32-36); Mean Corpuscular Hemoglobin 28.2 pg (27.0-31.0); Mean Corpuscular Volume 86.4 fL (78.0-102.0); Mean Platelet Volume 10.5 fl (8.7-11.0); Monocytes Absolute Auto 0.62 K/mm3 (0.10-0.90); Monocytes Percent Auto 7.7 % (2.0-11.0); Neutrophils Absolute Auto 5.46 K/mm3 (1.70-7.20); Neutrophils Percent Auto 67.7 % (50.0-70.0); Platelet Count Result 204 K/mm3 (150-420); Red Blood Count 5.79 M/mm3 (4.70-6.10); Red Cell Distribution Width 13.5 % (11.6-14.4); White Blood Count 8.1 K/mm3 (4.8-10.8)
[2023-10-03] MEDS: SODIUM CHLORIDE 0.9% IV 1,000 ML 999 ML IV CONT (10:42)
[2023-10-03] MEDS: KETOROLAC 30 MG/ML VIAL (*BKC) IV PUSH (10:43)
--- NOTE | 2023-10-03 10:59 | ED.BACK ---
HPI - Back Pain/Injury General Chief Complaint: Back Pain/Injury Stated Complaint: back pain Time Seen by Provider: 10/03/23 10:07 Source: patient and family Mode of arrival: ambulatory Limitations: no limitations History of Present Illness HPI Narrative: this is a 72-year-old male with history of diabetes was mowing his lawn and a large tree branch fell striking him on the left flank area there is a the bruising and pain, rates his pain about a 7/10 has taken some [id number]-xmg-fujumcp medication with minimal relief this occurred yesterday, there is no shortness of breath no abdominal pain no dysuria or hematuria no fever chills or chest pain no other injuries. MD elicited complaint: back pain and back injury Onset (ago): day(s) Timing: constant Severity: moderate Pain scale (0-10): 7 Quality: dull and aching Location: left flank Radiation: none Exacerbating factors: movement Related Data Home Medications Medication Instructions Recorded Confirmed aspirin 81 mg tablet,delayed 81 mg PO DAILY 06/18/19 10/03/23 release (Adult Low Dose Aspirin) multivitamin,ep-lheu-eyjcpdpv 1 tablet PO DAILY 11/06/19 10/03/23 (Complete Multivitamin tablet) omega 2-mum-mxm-fish oil 1,000 mg 1 cap PO DAILY 11/06/19 10/03/23 (120 mg-180 mg) capsule (Fish Oil) Allergies Allergy/AdvReac Type Severity Reaction Status Date / Time caffeine Allergy Severe THROAT Verified 10/03/23 10:12 SWELLING ,HIVES adhesive Allergy Intermediate blistering Verified 10/03/23 10:12 of skin Review of Systems Review of Systems: All systems reviewed & are unremarkable except as noted in HPI and below PMFSH Past Medical History Medical History (Updated 10/03/23 @ 11:03 by Jeffy Diego MD) CAD (coronary artery disease) DM2 (diabetes mellitus, type 2) Hyperlipidemia Hypertension Kidney stones Lower abdominal pain Myocardial infarction 2002 AINSLEY (obstructive sleep apnea) Osteoarthritis Polycythemia Surgical History Surgical History History of colonoscopy with polypectomy History of coronary angioplasty 2016 History of left knee surgery ACL Reconstruction History of right knee surgery Meniscus Removal History of shoulder surgery Right Shoulder Impingment History of total right knee replacement (TKR) Family History Family History Mother Diabetes mellitus Father Heart disease Social History Social History Smoking status: Never smoker Substance use: never Living arrangements: with family Additional living arrangements comments: . No children. Occupation/Education: retired Additional occupation/education comments: Prior Occupation: Pharmacist @ [employer] Gender identity (if verbalized by the patient): Male Exam Const: General: healthy appearing, no acute distress and alert Nutritional Appearance: well nourished Orientation/consciousness: patient oriented x3 Limitations: no limitations Neck: Neck: normal visual inspection, no lymphadenopathy and no meningeal signs Chest: Chest palpation & inspection: normal inspection of the chest Resp: Effort & Inspection: normal respiratory effort Auscultation: clear to auscultation bilaterally Cardio: Rate: regular rate Rhythm: regular rhythm GI: GI Palp: Yes Soft to palpation Auscultation: normal bowel sounds : General: Yes CVA tenderness Other: Bruising left flank area Back/Spine/Pelvis: Back: CVA tenderness Skin: Wounds: wounds noted Neuro: General: patient oriented x3, moves all extremities and no meningeal signs Course Course Emergency Course: patient received IV fluids, and IV Toradol for pain control CT scan performed which shows no acute abnormalities. Labs obtained and reviewed patient did receive IV fluids. Vital Signs Vital s
[2023-10-03 11:00] VITALS: BP 115/65; PULSE 62; RESP 17; O2SAT 95
[2023-10-03 11:04] LABS: Alanine Aminotransferase 79 U/L (16-63); Albumin Level 3.8 g/dL (3.4-5.0); Alkaline Phosphatase 62 U/L (46-116); Anion Gap 6 mmol/L (4-12); Aspartate Amino Transferase 28 U/L (15-37); Bilirubin,Total 0.5 mg/dL (0.00-1.00); Blood Urea Nitrogen 23 mg/dL (7-18); Calcium 9.5 mg/dL (8.5-10.1); Carbon Dioxide 28 mmol/L (21-32); Chloride 107 mmol/L (98-108); Creatine Kinase 59 U/L (39-308); Estimated Glomerular Filt Rate > 60; Glucose 175 mg/dL (70-99); Osmolality Calculated 299 mOsm/kg (285-295); Potassium 4.3 mmol/L (3.5-5.1); Sodium 141 mmol/L (136-145); Total Protein 6.9 g/dL (6.4-8.2)
--- NOTE | 2023-10-03 11:15 | PC.NURSE ---
Erp made aware patient still hasn't urinated. patient is to be discharged. no longer need urine sample.
--- NOTE | 2023-10-03 11:23 | PC.NURSE ---
Patient to finish IVF prior to discharge.
[2023-10-03 11:30] VITALS: BP 105/59; PULSE 60; RESP 17; O2SAT 95
[2023-10-03 11:47] VITALS: BP 114/64; PULSE 63; RESP 17; O2SAT 95
== END 2023-10-03 11:47 | disposition home or self-care (01) ==
PROVIDERS: Emergency Provider Emergency Medicine; PCP Family Medicine
DX: S30.0XXA Contusion of lower back and pelvis, initial encounter (principal); W20.8XXA Other cause of strike by thrown, projected or falling object, initial encounter; I25.10 Atherosclerotic heart disease of native coronary artery without angina pectoris; E11.9 Type 2 diabetes mellitus without complications; I10 Essential (primary) hypertension; E78.5 Hyperlipidemia, unspecified; I25.2 Old myocardial infarction; G47.33 Obstructive sleep apnea (adult) (pediatric); Z79.82 Long term (current) use of aspirin; Z79.02 Long term (current) use of antithrombotics/antiplatelets; Z79.4 Long term (current) use of insulin; Z79.84 Long term (current) use of oral hypoglycemic drugs
CPT/HCPCS: 36415; 74176; 80053; 82550; 85025; 96361; 96374; 99284; J1885; J7030

== ENCOUNTER 2024-07-08 07:56 | Outpatient (CLI) | payer MEDICARE, OTHER, SELFPAY ==
--- OUTSIDE RECORDS SUMMARY | 2024-07-08 08:01 | XMS_ITS | Clinical Summary ---
Author Organization [facility] [address] Address [address] [place] [address] Care Team Providers Care Primary Products Inspectors Name Role Phone MichealblancaJasonh Primary Care Provider Allergies Active Allergy Reactions Criticality Noted Date Comments Caffeine Hives Medium Medications fluticasone (FLONASE) 50 mcg/actuation nasal spray inhale 1 spray by intranasal route 2 times every day in each nostril 0 spray 0 5 Active SITagliptin (JANUVIA) 100 mg tablet take 1 tablet by oral route every day 0 0 5 Active lovastatin (MEVACOR) 40 mg tablet take 1 tablet by oral route every day with the evening meal 0 0 5 Active insulin glargine (LANTUS) 100 unit/mL injection inject by subcutaneous route as per insulin protocol 0 vial 0 5 Active multivitamin tablet tablet take 1 by Oral route once 0 0 4 Active coenzyme Q10 (COQ-10) 100 mg capsule take 1 by Oral route once 0 0 4 Active omega-3 fatty acids-fish oil 340-1,000 mg capsule take 3 by Oral route 2 times every 0 0 4 Active magnesium oxide (MAG-OX) 415 mg (250 mg elemental) tablet take 2 by Oral route once 0 0 4 Active resveratrol 100 mg capsule 100 mg. 0 0 4 Active lisinopril (PRINIVIL,ZESTR IL) 20 mg tablet take 1/2 tablet by oral route every day 0 0 6 Active aspirin (ASPIR-81) 81 mg tablet take 1 Tablet by oral route every day 0 0 6 Active nitroglycerin (NITROSTAT) 0.[address] 1 tablet (0.4 mg total) under the tongue every 5 (five) minutes as needed for chest pain. 25 tablet 1 7 Active ascorbic acid, vitamin C, (VITAMIN C) 500 mg CR tablet Take 1 tablet (500 mg total) by mouth daily Active metoprolol XL (TOPROL-XL) 50 mg 24 hr tablet Take 1 tablet (50 mg total) by mouth daily Active clopidogrel (PLAVIX) 75 mg tablet Take 1 tablet (75 mg total) by mouth daily 2 8 Active metFORMIN (GLUCOPHAGE) 500 mg tablet Take 1 tablet (500 mg total) by mouth 2 (two) times a day with meals Active isosorbide mononitrate ER (IMDUR) 60 mg 24 hr tabletIndicatio ns:Coronary artery disease of [place] artery of [place] heart with stable angina pectoris (HCC) Take 1.5 tablets (90 mg total) by mouth daily 45 tablet 5 1 Active quercetin 500 mg capsule Take 100 mg by mouth Active alpha lipoic acid 600 mg capsule Take by mouth Active ASHWAGANDHA EXTRACT ORAL Take by mouth Act david vitamin K2 40 mcg tablet Take by mouth Activ e prasterone, dhea, 25 mg tablet Take by mouth Active acidophilus-pec tin, citrus 100 million cell-10 mg capsule Take by mouth Activ e Active Problems Problem Noted Date Diagnosed Date S/P CABG (coronary artery bypass graft) 02/01/20 17 Patient encounter status 11/08/2014 Overview (09/07/2016): Surgery follow-up examination Chronic coronary artery disease 09/21/2014 Overview (09/07/2016): Coronary artery disease Knee pain 01/07/2013 Encounters Date Type Department Care Team Description 06/26/2024 2:15 PM ASBESTOS WORKER Office Visit [facility] Cardiology at [address] [place] [id number] Jeffy Jimenez MD S/P CABG (coronary artery bypass graft) (Primary Dx) from Last 3 Months Surgical History Surgery Date Site/Laterality Comments OTHER SURGICAL HISTORY Removal of meniscus right knee OTHER SURGICAL HISTORY stent to LAD OTHER SURGICAL HISTORY stents to LAD, RCA, circumflex arteries SHOULDER SURGERY right shoulder surgery TOTAL KNEE ARTHROPLASTY right total knee replacement OTHER SURGICAL HISTORY Removal, washout, and reimplantation of right knee replacement CORONARY ARTERY BYPASS GRAFT CABG JOINT REPLACEMENT 06/03/2011 - 06/02/2012 Medical History Medical History Date Comments Hx Other Medical Diabetes Type I I Hypertension Hypertension Diabetes mellitus (HCC) Diabetes mellitus; Comments: AMB 09/21/2014 - Arthritis Arthritis; Comme nts: AMB 09/21/2014 - Myocardial infarction (HCC) Myoc ardial infarction Chronic coronary artery disease Coronary artery disease Hx Other Medical elevated choles terol; Comments: AMB 09/21/2014 - Cathard 10/16/2017 Heart disease 2003 Kidney stone Several episodes Family History Medical History Relation Name Comments Heart attack Brother 3 mena Myocardial Infa rction; Coronary artery disease Brother 4 Bernie nary Artery Bypass Graft; Coronary artery disease Father Ilir Bernie nary Artery Bypass Graft; /Coronary artery disease; Early Father Ilir Heart attack Father Ilir Myocardial Infa rction; Hypertension Father [place] Hypertension; Heart disease Father's Brother bill Heart disease Father's Sister jayy Stroke Maternal Grandmother cosmo Diabetes Mother Marla Arora Diabetes type II Mother Marla Arora Diabetes Type II; Heart attack Mother's Brother 2 Myocardia l Infarction; Coronary artery disease Mother's Sister 1 1 Coronary Artery Bypass Graft; Heart attack Mother's Sister 2 2 Myocardial Infarction; Heart disease Paternal Grandmother [place] Relation Name Status Comments Brother 1 Alive Brother 2 Alive Brother 3 mena Brother 4 Father [place] Alive Father's Brother bill Father's Sister jayy Maternal Grandmother cosmo Mother Marla Arora Alive Mother's Brother 1 Alive Mother's Brother 2 Mother's Sister 1 1 Alive Mother's Sister 2 2 Alive Paternal Grandmother [place] Social History Tobacco Use Types Packs/Day Years Used Date Smoking Tobacco: Never Smokeless Tobacco: Never Tobacco Cessation:Counseling Given: Not Answered Alcohol Use Standard Drinks/Week Comments Yes 0 (1 standard drink = 0.6 oz pur e alcohol) Sex and Gender Information Value Date Recorded Sex Assigned at Not on file Legal Sex Male 11:05 AM ASBESTOS WORKER Gender Identity Not on file Sexual Orientation Not on file Obstetrics History Last Filed Vital Signs Vital Sign Reading Time Taken Comments Blood Pressure 102/66 06/26/2024 2:02 PM ASBESTOS WORKER Pulse 82 06/26/2024 2:02 PM ASBESTOS WORKER Temperature - - Respiratory Rate 16 01/31/2017 8:13 AM CDT Oxygen Saturation 92% 06/26/2024 2:02 PM ASBESTOS WORKER Inhaled Oxygen Concentration - - Weight 88.9 kg (196 lb) 06/26/2024 2:02 PM ASBESTOS WORKER Height 172.7 cm (5' 8 ) 06/26/2024 2:02 PM ASBESTOS WORKER Body Mass Index 29.8 06/26/2024 2:02 PM ASBESTOS WORKER Plan of Treatment Health Maintenance Due Date Last Done Comments Colon Cancer Screening-Colonoscopy 1950 Depression Screening 1950 Pneumococcal vaccine 65+ (1 of 2 - PCV) 12/07/1957 DTaP/Tdap/Td Vaccine (1 - Tdap) 12/07/1962 Hepatitis B Screening 12/07/1969 Zoster Vaccine (1 of 2) 12/07/2001 Well Visit 65+ 12/07/2016 Fall Risk Assessment 11/07/2018 11/07/2017 Influenza Vaccine (#1) 2024 02/14/2016 Hepatitis C Screening Completed 09/24/2015 Procedures Procedure Name Priority Date/Time Associated Diagnosis Comments SERUM HEPATITIS PANEL Routine 09/24/2015 8:58 PM CDT from Last 3 Months or Most Recently Relevant to Health Maintenance Results * Serum Hepatitis panel (09/24/2015 8:58 PM CDT) HBV surface ag Non-Reacti ve Non-Reacti ve HISTORICAL RESULTS HCV ab Non-Reacti ve Non-Reacti ve HISTORICAL RESULTS HBV core ab, IgM Non-Reacti ve Non-Reacti ve HISTORICAL RESULTS HAV ab, IgM Non-Reacti ve Non-Reacti ve HISTORICAL RESULTS Serum 09/24/2015 8:[address] CONTRACTOR LAB BLOOD ORDERA BLES Final Result HISTORICAL RESULTS from Last 3 Months or Most Recently Relevant to Health Maintenance Insurance [employer] MEDICARE MEDICARE [employer] Care Teams Primary Products Inspectors Relationship Specialty Start Date End Date Jason Richardson DO [address] [place] [address] PCP - General Family Medicine 06/21/20
--- OUTSIDE RECORDS SUMMARY | 2024-07-08 08:01 | XMS_ITS | CONTINUITY OF CARE DOCUMENT ---
Author Name roberto mejia Address Unknown Organization [facility] Address [address] [place] [address] Phone [phone] Care Team Providers Care Manager Water Name Role Phone Manuel ADDISON, [employer] Unavailable [phone] LÁZARO LISA MD Unavailable [phone] INSURANCE PROVIDERS Payer name Policy type / Coverage type [place] red constitution party ID [facility] health plan [id number] 2 [facility] [id number]
--- OUTSIDE RECORDS SUMMARY | 2024-07-08 08:01 | XMS_ITS | Referral Summary ---
Author Organization [facility] [address] Address [address] [place] [address] Care Team Providers Care Film Critic Name Role Phone MichealMadison rioscat WigginsAranda Primary Care Provider Encounters Date Type Department Care Team Description 06/26/2024 2:15 PM ASSISTANT FLOOR COVERING PRINTER Office Visit [facility] Cardiology at [address] [place] [address] Jeffy Jimenez MD S/P CABG (coronary artery bypass graft) (Primary Dx) from Last 3 Months Allergies Active Allergy Reactions Criticality Noted Date [...] 24 hr tabletIndicatio ns:Coronary artery disease of [place] artery of [place] heart with stable angina pectoris (HCC) Take [...] (09/07/2016): Coronary artery disease Knee pain 01/07/2013 Social History Tobacco Use Types Packs/Day Years Used Date Smoking Tobacco: Never Smokeless Tobacco: Never Tobacco Cessation:Counseling Given: Not Answered Alcohol Use Standard Drinks/Week Comments Yes 0 (1 standard drink = 0.6 oz pur e alcohol) Sex and Gender Information Value Date Recorded Sex Assigned at Not on file Legal Sex Male 11:05 AM ASSISTANT FLOOR COVERING PRINTER Gender Identity Not on file Sexual Orientation Not on file Last Filed Vital Signs Vital Sign Reading Time Taken Comments Blood Pressure 102/66 06/26/2024 2:02 PM ASSISTANT FLOOR COVERING PRINTER Pulse 82 06/26/2024 2:02 PM ASSISTANT FLOOR COVERING PRINTER Temperature - - Respiratory Rate 16 01/31/2017 8:13 AM CDT Oxygen Saturation 92% 06/26/2024 2:02 PM ASSISTANT FLOOR COVERING PRINTER Inhaled Oxygen Concentration - - Weight 88.9 kg (196 lb) 06/26/2024 2:02 PM ASSISTANT FLOOR COVERING PRINTER Height 172.7 cm (5' 8 ) 06/26/2024 2:02 PM ASSISTANT FLOOR COVERING PRINTER Body Mass Index 29.8 06/26/2024 2:02 PM ASSISTANT FLOOR COVERING PRINTER Plan of Treatment Not on file Procedures Procedure Name Priority Date/Time Associated Diagnosis [...] Serum 09/24/2015 8:58 PM CDT Myesha Curtis CLERICAL AIDE TEACHER LAB BLOOD ORDERA BLES Final Result HISTORICAL RESULTS from Last 3 Months or Most Recently Relevant to Health Maintenance Insurance [employer] MEDIC[place] MEDICARE Member Subscriber Plan / Payer ( fective 2016-Present) Name:LUIS ARORA Member ID:[id number] Relation to Subscriber:Self Name:UlyssesLuis Vilma Subscriber ID:[id number] Payer ID:[id number] Group ID:Not on file Type:MEDICARE TRADITIONAL Address: [place] [phone] [employer] Care Teams Film Critic Relationship Specialty Start Date End Date Jason Richardson DO [address] [place] [address] PCP - General Family Medicine 06/21/20
--- OUTSIDE RECORDS SUMMARY | 2024-07-08 08:01 | XMS_ITS | Clinical Summary ---
Author Organization [facility] Address [address] [place] [address] Care Team Providers Care Chief Deputy Court Clerk Name Role Phone Johan Eller MD Primary Care Provider Allergies Active Allergy Reactions Criticality Noted Date Comments Caffeine Hives Medium Prochlorperazine Rash Medium Medications Ascorbic Acid (RA VITAMIN C CR) 500 MG Tab CR Take 500 mg by mouth 2 (two) times daily. Active aspirin EC (ASPIRIN 81) 81 MG tablet 81 mg. 6 Active cephALEXin 500 MG capsule 2 9 Active clopidogrel 75 MG tablet 8 Active fluticasone propionate 50 MCG/ACT nasal spray inhale 1 spray by intranasal route 2 times every day in each nostril 5 Active LANTUS 100 UNIT/ML injection (VIAL) 2 9 Active isosorbide mononitrate ER 60 MG 24 hr tablet 90 mg. 2 9 Active lisinopril 10 MG tablet 2 9 Active lovastatin 40 MG tablet 40 mg. 5 Active MAGNESIUM OR 250 mg. 4 Active metFORMIN 500 MG tablet 2 9 Active metoprolol succinate ER 50 MG 24 hr tablet Take 50 mg by mouth daily. Active nitroglycerin 0.[address] 0.4 mg under the tongue. 7 Active [place]-3 Fatty Acids (FISH OIL OR) take 3 by Oral route 2 times every 4 Active Resveratrol 100 MG Cap 100 mg. 04/17/201 4 Active SITagliptin (JANUVIA) 100 MG tablet 100 mg. 5 Active Active Problems Problem Noted Date Diagnosed Date S/P CABG (coronary artery bypass graft) 02/01/20 17 Chronic coronary artery disease 09/21/2014 Overview (10/01/2018): Overview: Coronary artery disease Knee pain 01/07/2013 Social History Tobacco Use Types Packs/Day Years Used Date Smoking Tobacco: Never Smokeless Tobacco: Never Alcohol Use Standard Drinks/Week Comments No 0 (1 standard drink = 0.6 oz pur e alcohol) AUDIT-C Answer Date Recorded Frequency of Alcohol Consumption Never 10/01/2018 Average Number of Drinks Not on file 019 Frequency of Binge Drinking Not on file 06/2018 Sex and Gender Information Value Date Recorded Sex Assigned at Not on file Legal Sex Male 5:13 PM CDT Gender Identity Not on file Sexual Orientation Not on file Last Filed Vital Signs Vital Sign Reading Time Taken Comments Blood Pressure 148/77 11/05/2018 11:13 AM CDT Pulse 75 11/05/2018 11:13 AM CDT Temperature 36.2 ??C (97.1 ??F) 11/05/2018 1 1:13 AM CDT Respiratory Rate 20 11/05/2018 11:1 3 AM CDT Oxygen Saturation - - Inhaled Oxygen Concentration - - Weight 87.4 kg (192 lb 10.9 oz) 019 11:13 AM CDT Height 172.7 cm (5' 8 ) 11/05/2018 11:1 3 AM CDT Body Mass Index 29.3 11/05/2018 11:13 AM CDT Plan of Treatment Health Maintenance Due Date Last Done Comments ASCVD LDL 1950 ASCVD Statin 1950 Colorectal Cancer Screening Colonoscopy (10 Years) 1950 Pneumococcal Vaccine: 65+ Ye ars (1 of 2 - PCV) 12/07/1957 Hepatitis C 12/07/1969 DTaP, Tdap and Td Vaccines ( 1 - Tdap) 12/07/1970 Zoster Vaccines (1 of 2) 12/07/2001 RSV Immunization or 60+ Years (1 - Risk 60-74 years 1-dose series) 2011 Annual Medicare Wellness Visit 12/07/2016 COVID-19 Vaccine (2023-2 5 season) 2024 Influenza Adult (#1) 2024 Meningococcal B Vaccine Aged Out No l onger eligible based on patient's age to complete this topic Meningococcal Vaccine Aged Out No oriana joe eligible based on patient's age to complete this topic RSV Immunizations Under 20 Months Aged Out No longer eligible based on patient's age to complete this topic Insurance MEDICARE [employer] Care Teams Chief Deputy Court Clerk Relationship Specialty Start Date End Date Johan Eller MD [address] [place] [address] PCP - General FAMILY PRACTICE 09/02/18
--- OUTSIDE RECORDS SUMMARY | 2024-07-08 08:01 | XMS_ITS | Encounter Summary ---
Author Organization [facility] Address [address] [place] [address] Care Team Providers Care Wax Ball Molder Name Role Phone Johan Eller MD Primary Care Provider [phone] Encounter Details Date Type Department Care Team (Late st Contact Info) Description 10/13/2018 CHIEF MEDICAL OFFICER ONLY [facility] Priority Care - Maya Matamoros [address] [place] [address] Scanned, Documents Social History Tobacco Use Types Packs/Day Years [...] on file Sexual Orientation Not on file documented as of this encounter Progress Notes * Onofre, Documents - 10/13/2018 4:[address] [address] ---- PATIENT NAME: LUIS ARORA MED REC #: [id number] ADMIT DATE: DATE: PATIENT TYPE: REG CLI SERVICE: PT LOCATION: [facility] AGE/SEX: 67M DATE OF : 1950 ATTENDING PHYS: LIZETTE THOMAS MD ---- SLEEP STUDY REPORT PATIENT: Luis Arora : 1950 MR #: [id number] Testing Date: 10/13/2018 Chart Document ORDERED BY: Lizette Thomas MD INDICATIONS: Assess for sleep apnea. A 67-year-old male, body weight 193 pounds, height of 5 feet 8 inches, BMI of 29, had symptoms of sleep apnea, snoring, daytime sleepiness, sent for assessment of sleep apnea. METHOD USED: [facility] [place] method. SLEEP SUMMARY: Patient was monitored from 9:57 p.m. until 05:46 a.m. Total time in bed is 469 minutes. Sleep time 186 minutes, sleep onset 66 minutes. Sleep efficiency 39%. Awake after sleep onset 250 minutes, stage I, 28%, stage II, 65%, stage 3, 7%, REM latency 38 minutes. Patient spent 41% supine. CARDIAC SUMMARY: Awake heart rate was 74 beats per minute, average sleep heart rate was 72 beats per minute. Patient noted to have intermittent premature beats, mostly appeared to be PACs. MOVEMENT SUMMARY: Patient had 11 periodic limb movements, index of 3 an hour. No arousals. RESPIRATORY SUMMARY: Patient noted to have snoring, 23 obstructive apneas, 27 central apneas, and 93 hypopneas. AHI was 29 an hour. Patient was tried on CPAP. With a pressure of 4 and 5 CWP, he was unable to tolerate, unable to exhale on CPAP, switched to BiPAP 8/4 CWP for 65 minutes, continued to have sleep apnea and hypopneas with desaturations down to the mid 80s. Patient could not tolerate CPAP or BiPAP. IMPRESSION: 1. Moderate to severe sleep, apnea/hypopnea syndrome, AHI 29 an hour. Lowest saturation was 86%. Patient spent 17% of sleep time with a saturation below 90%. 2. He was tried on CPAP and BiPAP at low pressure BiPAP 8/4 and CPAP of 5 was unable to tolerate. RECOMMENDATIONS: 1. General recommendations including weight reduction, assessment of upper airways and thyroid function testing. Safety, education, close followup. 2. Patient will need further desensitization to CPAP and if tolerance is established, he would need full-night titration for optimal therapy. The desensitization could be achieved utilizing AutoPap using mask in the evening while awake to get feeling for the mask, monitor downloads and close followup for need of full-night titration. NILSON/flex P P #[id number] Albert Ashraf MD, [facility] Diplomate, [place] Board of Sleep Medicine cc: M Bakir, MD Lizette Yousif MD MB/nts E-Signed By P Albert Ashraf MD 10/14/2018 10:50 P P #[id number] Albert Ashraf MD cc: MD Johan Downey MD Hui Zhang, MD documented in this encounter Plan of Treatment Not on file documented as of this encounter Visit Diagnoses Not on filedocumented in this encounter Care Teams Wax Ball Molder Relationship Specialty Start Date End Date Johan Eller MD [address] [place] [address] PCP - General FAMILY PRACTICE 09/02/18 documented as of this encounter
[2024-07-08 08:09] LABS: Basophils Percent Auto 1.2 % (0.0-1.0); Eosinophils Absolute Auto 0.48 K/mm3 (0.02-0.50); Eosinophils Percent Auto 5.9 % (1.0-6.0); Hematocrit 48.7 % (37.0-46.0); Hemoglobin 15.8 g/dL (12.4-15.3); Immature Granulocyte Absolute 0.05 K/mm3 (0.00-0.00); Immature Granulocyte Percent A 0.6 % (0.0-0.0); Lymphocytes Absolute Auto 2.56 K/mm3 (1.10-4.50); Lymphocytes Percent Auto 31.4 % (18.0-42.0); Mean Corpuscular HGB Conc 32.4 g/dL (32-36); Mean Corpuscular Hemoglobin 28.2 pg (27.0-31.0); Mean Corpuscular Volume 86.8 fL (78.0-102.0); Mean Platelet Volume 10.3 fl (8.7-11.0); Monocytes Percent Auto 8.6 % (2.0-11.0); Neutrophils Absolute Auto 4.27 K/mm3 (1.70-7.20); Neutrophils Percent Auto 52.3 % (50.0-70.0); Platelet Count Result 205 K/mm3 (150-420); Red Blood Count 5.61 M/mm3 (4.70-6.10); Red Cell Distribution Width 13.4 % (11.6-14.4); White Blood Count 8.2 K/mm3 (4.8-10.8)
[2024-07-08 09:22] LABS: Alanine Aminotransferase 79 U/L (16-63); Albumin Level 4.1 g/dL (3.4-5.0); Alkaline Phosphatase 49 U/L (46-116); Anion Gap 10 mmol/L (4-12); Aspartate Amino Transferase 35 U/L (15-37); Bilirubin,Total 0.8 mg/dL (0.00-1.00); Blood Urea Nitrogen 20 mg/dL (7-18); Calcium 9.2 mg/dL (8.5-10.1); Carbon Dioxide 26 mmol/L (21-32); Chloride 107 mmol/L (98-108); Estimated Glomerular Filt Rate > 60; Ferritin 86 ng/mL (26-388); Glucose 76 mg/dL (70-99); Iron 103 ug/dL (65-175); Osmolality Calculated 297 mOsm/kg (285-295); Percent Iron Saturation 30 % (12-57); Sodium 143 mmol/L (136-145); Total Protein 6.6 g/dL (6.4-8.2)
[2024-07-08 11:12] LABS: Hemoglobin A1C 8.6 % (<5.7)
== END 2024-07-08 07:57 | disposition home or self-care (01) ==
LOC: CHSLAB 08:00
PROVIDERS: PCP Family Medicine; Visit Provider Family Medicine
DX: D50.9 Iron deficiency anemia, unspecified (principal); D75.1 Secondary polycythemia; D64.9 Anemia, unspecified; E11.9 Type 2 diabetes mellitus without complications
CPT/HCPCS: 36415; 80053; 82728; 83036; 83540; 83550; 85025

== ENCOUNTER 2024-08-27 09:04 | Outpatient (CLI) | payer MEDICARE, OTHER, SELFPAY ==
--- NOTE | ~2024-08-27 | MR_ITS ---
EXAMINATION: MR brain IAC wo/w con DATE: 08/27/2024 10:30 INDICATION: Sensorineural hearing loss, left ear. TECHNIQUE: Magnetic resonance imaging (MRI) of the brain, brainstem, and internal auditory canals was performed without and with 19 mL MultiHance intravenous contrast. COMPARISON: None. FINDINGS: There are scattered areas of nonspecific increased T2-weighted signal intensity in the cere bral white matter, which is within normal limits for the patient's age. There is no intracranial hemo rrhage, acute infarction, or abnormal intracranial mass lesion. The ventricles are normal in size. Th e paranasal sinuses are clear. The orbits are normal. There is a left otomastoid effusion. The sports broadcasting internship al auditory canals and inner ears are normal. IMPRESSION: 1. Normal aging brain. 2. Left otomastoid effusion. Reviewed, dictated and finalized at location A.
--- OUTSIDE RECORDS SUMMARY | 2024-08-27 09:35 | XMS_ITS | Encounter Summary ---
Author Organization [facility] Address [address] [place] [address] Care Team Providers Care Home Coordinator Name Role Phone Johan Eller MD Primary Care Provider [phone] Encounter Details Date Type Department Care Team (Late st Contact Info) Description 10/13/2018 BELT CLEANER ONLY [facility] Medical Group Priority Care - Maya Matamoros [address] [place] [address] Scanned, Documents Social History Tobacco [...] Onofre, Documents - 10/13/2018 4:49 PM [address]T [address] [address] ---- PATIENT NAME: LUIS ARORA MED REC #: [id number] ADMIT DATE: DATE: PATIENT TYPE: REG CLI SERVICE: PT LOCATION: [facility] AGE/SEX: 67M DATE OF : 1950 ATTENDING PHYS: LIZETTE THOMAS MD ---- SLEEP STUDY REPORT PATIENT: Luis Arora : 1950 MR #: [id number] Testing Date: 10/13/2018 Chart Document ORDERED BY: Lizette Thomas MD INDICATIONS: Assess for sleep apnea. A 67-year-old male, body weight 193 pounds, height of 5 feet 8 inches, BMI of 29, had symptoms of sleep apnea, snoring, daytime sleepiness, sent for assessment of sleep apnea. METHOD USED: [facility] [place] method. SLEEP SUMMARY: Patient was monitored from [...] need of full-night titration. NILSON/flex P P #[id number] Albert Ashraf MD, [facility] Diplomate, [place] Board of Sleep Medicine cc: M Bakir, MD Lizette Yousif MD MB/nts E-Signed By P Albert Ashraf MD 10/14/2018 10:50 P P #[id number] Albert Ashraf MD cc: MD Johan Downey MD Hui Zhang, MD documented in this encounter Plan of Treatment Not on file documented as of this encounter Visit Diagnoses Not on filedocumented in this encounter Care Teams Home Coordinator Relationship Specialty Start Date End Date Johan Eller MD [address] [place] [address] PCP - General FAMILY PRACTICE 09/02/18 documented as of this encounter
--- OUTSIDE RECORDS SUMMARY | 2024-08-27 09:35 | XMS_ITS | CONTINUITY OF CARE DOCUMENT ---
Author Name roberto mejia Address Unknown Organization [facility] Address [address] [facility] [facility] [address] [place] [address] Phone [phone] Care Team Providers Care Broom Bundler Name Role Phone Manuel ADDISON, [employer] Unavailable [phone] LÁZARO LISA MD Unavailable [phone] INSURANCE PROVIDERS Payer name Policy type / Coverage type [place] red green party ID [id number] [facility] health plan [id number] 2 [facility] [id number]
--- OUTSIDE RECORDS SUMMARY | 2024-08-27 09:35 | XMS_ITS | Clinical Summary ---
Author Organization [facility] Address [address] [place] [address] Care Team Providers Care Boiler Out Name Role Phone Johan Eller MD Primary Care Provider [phone] Allergies Active Allergy Reactions Criticality Noted Date [...] 0.4 mg under the tongue. 7 Active [place]-3 Fatty Acids (FISH OIL OR) take 3 [...] Average Number of Drinks Not on file Frequency of Binge Drinking Not on file 06/2018 Sex and Gender Information Value Date Recorded Sex Assigned at Not on file Legal Sex Male 5:13 PM CDT Gender Identity Not on file Sexual Orientation Not on file Last Filed Vital Signs Vital Sign Reading Time Taken Comments Blood Pressure 148/77 11/05/2018 11:13 AM CDT Pulse 75 11/05/2018 11:13 AM CDT Temperature 36.2 C (97.1 F) 11/05/2018 11:13 AM CDT Respiratory Rate 20 11/05/2018 11:1 [...] topic Insurance MEDICARE [employer] Care Teams Boiler Out Relationship Specialty Start Date End Date Johan Eller MD [address] [place] [address] PCP - General FAMILY PRACTICE 09/02/18
--- OUTSIDE RECORDS SUMMARY | 2024-08-27 09:35 | XMS_ITS | Clinical Summary ---
Author Organization [facility] [address] Address [address] [place] [address] Care Team Providers Care C.O.D. Audit Clerk Name Role Phone MichealblancaJasonh Primary Care Provider [...] 24 hr tabletIndicatio ns:Coronary artery disease of [place] artery of [place] heart with stable angina pectoris Take 1.5 tablets (90 mg total) by [...] Department Care Team Description 06/26/2024 2:15 PM KENNEL AIDE Office Visit [facility] Cardiology at [address] [place] [address] Jeffy Jimenez MD S/P CABG [...] Father Ilir Myocardial Infa rction; Hypertension Father Ilir Hypertension; Heart disease Father's Brother bill Heart disease Father's Sister jayy Stroke Maternal Grandmother cosmo Diabetes Mother Marlabulmaro Arora Diabetes type II Mother Marla Arora Diabetes Type II; Heart attack Mother's Brother 2 Myocardia l Infarction; Coronary artery disease Mother's Sister 1 1 Coronary Artery Bypass Graft; Heart attack Mother's Sister 2 2 Myocardial Infarction; Heart disease Paternal Grandmother [place] Relation Name Status Comments Brother 1 Alive Brother 2 Alive Brother 3 mena Brother 4 Father Joice Alive Father's Brother bill Father's Sister jayy [...] on file Legal Sex Male 11:05 AM KENNEL AIDE Gender Identity Not on file Sexual Orientation Not on file Obstetrics History Last Filed Vital Signs Vital Sign Reading Time Taken Comments Blood Pressure 102/66 06/26/2024 2:02 PM KENNEL AIDE Pulse 82 06/26/2024 2:02 PM KENNEL AIDE Temperature - - Respiratory Rate 16 01/31/2017 8:13 AM CDT Oxygen Saturation 92% 06/26/2024 2:02 PM KENNEL AIDE Inhaled Oxygen Concentration - - Weight 88.9 kg (196 lb) 06/26/2024 2:02 PM KENNEL AIDE Height 172.7 cm (5' 8 ) 06/26/2024 2:02 PM KENNEL AIDE Body Mass Index 29.8 06/26/2024 2:02 PM KENNEL AIDE Plan of Treatment Health Maintenance Due Date Last Done Comments Colon Cancer Screening-Colonoscopy 1950 Depression Screening 1950 DTaP/Tdap/Td Vaccine (1 - Tdap) 12/07/1962 Hepatitis B Screening 12/07/1969 Pneumococcal vaccine 65+ (1 of 2 - PCV) 12/07/1970 Zoster Vaccine (1 of 2) 12/07/2001 Well [...] HISTORICAL RESULTS Serum 09/24/2015 8:58 PM CDT us Myesha Curtis JOY OPERATOR LAB BLOOD ORDERA BLES Final Result HISTORICAL RESULTS from Last 3 Months or Most Recently Relevant to Health Maintenance Insurance [employer] MEDICARE MEDIC[employer] Care Teams C.O.D. Audit Clerk Relationship Specialty Start Date End Date Jason Richardson DO [address] [place] [address] PCP - General Family Medicine 06/21/20
--- OUTSIDE RECORDS SUMMARY | 2024-08-27 09:35 | XMS_ITS | Referral Summary ---
Author Organization [facility] [address] Address [address] [place] [address] Care Team Providers Care Petroleum Products Sales Representative Name Role Phone MichealMadison rioscat WigginsAranda Primary Care Provider Encounters Date Type Department Care Team Description 06/26/2024 2:15 PM CLAIM REP Office Visit [facility] Cardiology at [address] [place] [address] Jeffy Jimenez MD S/P CABG [...] 24 hr tabletIndicatio ns:Coronary artery disease of [place] artery of [place] heart with stable angina pectoris Take 1.5 [...] on file Legal Sex Male 11:05 AM CLAIM REP Gender Identity Not on file Sexual Orientation Not on file Last Filed Vital Signs Vital Sign Reading Time Taken Comments Blood Pressure 102/66 06/26/2024 2:02 PM CLAIM REP Pulse 82 06/26/2024 2:02 PM CLAIM REP Temperature - - Respiratory Rate 16 01/31/2017 8:13 AM CDT Oxygen Saturation 92% 06/26/2024 2:02 PM CLAIM REP Inhaled Oxygen Concentration - - Weight 88.9 kg (196 lb) 06/26/2024 2:02 PM CLAIM REP Height 172.7 cm (5' 8 ) 06/26/2024 2:02 PM CLAIM REP Body Mass Index 29.8 06/26/2024 2:02 PM CLAIM REP Plan of Treatment Not on file Procedures [...] Serum 09/24/2015 8:58 PM CDT Myesha Curtis COMMUNITY PROGRAM ASSISTANT LAB BLOOD ORDERA BLES Final Result HISTORICAL RESULTS from Last 3 Months or Most Recently Relevant to Health Maintenance Insurance [employer] MEDICARE MEDICARE [employer] Address: [address] [address] [employer] Care Teams Petroleum Products Sales Representative Relationship Specialty Start Date End Date Jason Richardson DO [address] [place] [address] PCP - General Family Medicine 06/21/20
== END 2024-08-27 09:05 | disposition home or self-care (01) ==
PROVIDERS: PCP Family Medicine; Visit Provider Nurse Practitioner Family
DX: H90.5 Unspecified sensorineural hearing loss (principal); H74.8X2 Other specified disorders of left middle ear and mastoid
CPT/HCPCS: 70553; A9577

== ENCOUNTER 2025-04-09 08:32 | Outpatient (CLI) | payer MEDICARE, SELFPAY ==
[2025-04-09 08:44] LABS: Hematocrit 49.7 % (37.0-46.0); Hemoglobin 16.2 g/dL (12.4-15.3); Immature Granulocyte Percent A 0.6 % (0.0-0.0); Lymphocytes Absolute Auto 2.22 K/mm3 (1.10-4.50); Mean Corpuscular HGB Conc 32.6 g/dL (32-36); Mean Corpuscular Hemoglobin 28.5 pg (27.0-31.0); Mean Corpuscular Volume 87.3 fL (78.0-102.0); Nucleated Red Blood Cells Absolute Auto 0.00 K/mm3 (0.00-0.00); Nucleated Red Blood Cells Perc 0.0 % (0-0.0); Platelet Count Result 218 K/mm3 (150-420); Red Blood Count 5.69 M/mm3 (4.70-6.10); White Blood Count 8.7 K/mm3 (4.8-10.8)
--- OUTSIDE RECORDS SUMMARY | 2025-04-09 08:49 | XMS_ITS | Encounter Summary ---
Author Organization [facility] Address [address] [place] [address] Care Team Providers Care Firearms Instructor Name Role Phone Johan Eller MD Primary Care Provider [phone] Jason Richardson DO Primary Care Provider Encounter Details Date Type Department Care Team (Late st Contact Info) Description 06/20/2017 Orders Only [facility] Information Management [address] [place] [address] Scanning, Provider Social History Tobacco Use Types Packs/Day Years Used Date Smoking Tobacco: Never Smokeless Tobacco: Never Alcohol Use Standard Drinks/Week Comments Yes 0 (1 standard drink = 0.6 oz pur e alcohol) Sex and Gender Information Value Date Recorded Sex Assigned at Not on file Legal Sex Male 11:05 AM CERTIFIED NURSE OPERATING ROOM Gender Identity Not on file Sexual Orientation Not on file documented as of this encounter Plan of Treatment Not on file documented as of this encounter Procedures Procedure Name Priority Date/Time Associated Diagnosis Comments SCAN - LABS 06/20/2017 documented in this encounter Results * SCAN - LABS (06/20/2017) us Provider Scanning Final Result documented in this encounter Visit Diagnoses Not on filedocumented in this encounter Care Teams Firearms Instructor Relationship Specialty Start Date End Date Johan Eller MD PCP - General 08/31/16 06/20/20 Jason Richardson DO [address] [place] [address] PCP - General Family Medicine 06/21/20 documented as of this encounter
--- OUTSIDE RECORDS SUMMARY | 2025-04-09 08:49 | XMS_ITS | Clinical Summary ---
Author Organization [facility] Address [address] [place] [address] Care Team Providers Care Wool Fleece Grader Name Role Phone Johan Eller MD Primary Care Provider [phone] Allergies Active Allergy Reactions Criticality Noted Date [...] 0.4 mg under the tongue. 7 Active [place]-3 Fatty Acids (FISH OIL OR) take 3 [...] 11:13 AM CDT Height 172.7 cm (5' 8) 11/05/2018 11:1 3 AM CDT Body Mass Index 29.3 11/05/2018 11:13 AM CDT Plan of Treatment Health Maintenance Due Date Last Done Comments ASCVD LDL 1950 ASCVD Statin 1950 Colorectal Cancer Screening Colonoscopy (10 Years) 1950 Hepatitis C 12/07/1969 DTaP, Tdap and Td Vaccines ( 1 - Tdap) 12/07/1970 Pneumococcal Vaccine: 50+ Ye ars (1 of 2 - PCV) 12/07/1970 Zoster Vaccines (1 of 2) 12/07/2001 RSV Immunization or 60+ Years (1 - Risk 60-74 years 1-dose series) 2011 Annual Medicare Wellness Visit 12/07/2016 COVID-19 Vaccine (1 2024-2 6 season) 2025 Influenza Adult (#1) 2025 Hepatitis A Vaccines Aged Out No long er eligible based on patient's age to complete this topic Meningococcal B Vaccine Aged Out No l onger eligible based on patient's age to complete this topic Meningococcal Vaccine Aged Out No oriana joe eligible based on patient's age to complete this topic RSV Immunizations Under 20 Months Aged Out No longer eligible based on patient's age to complete this topic Insurance MEDICARE [employer] Care Teams Wool Fleece Grader Relationship Specialty Start Date End Date Johan Eller MD [address] [place] [address] PCP - General FAMILY PRACTICE 09/02/18
--- OUTSIDE RECORDS SUMMARY | 2025-04-09 08:49 | XMS_ITS | Encounter Summary ---
Author Organization [facility] Address [address] [place] [address] Care Team Providers Care Ship Self Defense System Mk1 Operator Name Role Phone Johan Eller MD Primary Care Provider [phone] Encounter Details Date Type Department Care Team (Late st Contact Info) Description 10/13/2018 STAFF AIR TACTICAL OFFICER ONLY [facility] Medical Group Priority Care - Maya Matamoros [address] [place] [address] Scanned, Documents Social History Tobacco [...] Onofre, Documents - 10/13/2018 4:49 PM CDT [address] [address] ---- PATIENT NAME: LUIS ARORA MED REC #: [id number] ADMIT DATE: DATE: PATIENT TYPE: REG CLI SERVICE: PT LOCATION: [facility] AGE/SEX: 67M DATE OF : 1950 ATTENDING PHYS: LIZETTE THOMAS MD ---- SLEEP STUDY REPORT PATIENT: Luis Arora : 1950 MR #: [id number] Testing Date: 10/13/2018 Chart Document ORDERED BY: Lizette Thomas MD INDICATIONS: Assess for sleep apnea. A 67-year-old male, body weight 193 pounds, height of 5 feet 8 inches, BMI of 29, had symptoms of sleep apnea, snoring, daytime sleepiness, sent for assessment of sleep apnea. METHOD USED: [place] [facility] method. SLEEP SUMMARY: Patient was monitored from [...] need of full-night titration. NILSON/flex P P #[id number] Albert Ashraf MD, [facility] Diplomate, [place] Board of Sleep Medicine cc: M Bakir, MD Lizette Yousif MD MB/nts E-Signed By P Albert Ashraf MD 10/14/2018 10:50 P P #[id number] Albert Ashraf MD cc: MD Johan Downey MD Hui Zhang, MD documented in this encounter Plan of Treatment Not on file documented as of this encounter Visit Diagnoses Not on filedocumented in this encounter Care Teams Ship Self Defense System Mk1 Operator Relationship Specialty Start Date End Date Johan Eller MD [address] [place] [address] PCP - General FAMILY PRACTICE 09/02/18 documented as of this encounter
--- OUTSIDE RECORDS SUMMARY | 2025-04-09 08:49 | XMS_ITS | Clinical Summary ---
Author Organization [facility] [address] Address [address] [place] [address] Care Team Providers Care Sql Ssrs Ssis Developer Name Role Phone MichealblancaJasonh Primary Care Provider [...] 24 hr tabletIndicatio ns:Coronary artery disease of [place] artery of [place] heart with stable angina pectoris Take 1.5 [...] (09/07/2016): Coronary artery disease Knee pain 01/07/2013 Surgical History Surgery Date Site/Laterality Comments OTHER [...] Type I I Hypertension Hypertension Diabetes mellitus Diabetes alexys madera; Comments: AMB 09/21/2014 - Arthritis Arthritis; Comme [...] Artery Bypass Graft; Coronary artery disease Father [place] Bernie nary Artery Bypass Graft; /Coronary artery disease; Early Father [place] Heart attack Father Ilir Myocardial Infa rction; Hypertension Father Ilir Hypertension; Heart disease Father's Brother bill Heart disease Father's Sister jayy Stroke Maternal Grandmother cosmo Diabetes Mother Marla Arora Diabetes type II Mother Marlabulmaro Arora Diabetes Type II; Heart attack Mother's Brother 2 Myocardia l Infarction; Coronary artery disease Mother's Sister 1 1 Coronary Artery Bypass Graft; Heart attack Mother's Sister 2 2 Myocardial Infarction; Heart disease Paternal Grandmother [place] Relation Name Status Comments Brother 1 Alive Brother 2 Alive Brother 3 mena Brother 4 Father [place] Alive Father's Brother bill Father's Sister jayy [...] on file Legal Sex Male 11:05 AM BUNKER WORKER Gender Identity Not on file Sexual Orientation Not on file Last Filed Vital Signs Vital Sign Reading Time Taken Comments Blood Pressure 102/66 06/26/2024 2:02 PM BUNKER WORKER Pulse 82 06/26/2024 2:02 PM BUNKER WORKER Temperature - - Respiratory Rate 16 01/31/2017 8:13 AM CDT Oxygen Saturation 92% 06/26/2024 2:02 PM BUNKER WORKER Inhaled Oxygen Concentration - - Weight 88.9 kg (196 lb) 06/26/2024 2:02 PM BUNKER WORKER Height 172.7 cm (5' 8) 06/26/2024 2:02 PM BUNKER WORKER Body Mass Index 29.8 06/26/2024 2:02 PM BUNKER WORKER Plan of Treatment Health Maintenance Due Date Last Done Comments Colon Cancer Screening-Colonoscopy 1950 Depression Screening 1950 DTaP/Tdap/Td Vaccine (1 - Tdap) 12/07/1962 Hepatitis B Screening 12/07/1969 Pneumococcal vaccine 65+ (1 of 2 - PCV) 12/07/1970 Zoster Vaccine (1 of 2) 12/07/2001 Well Visit 65+ 12/07/2016 Fall Risk Assessment 11/07/2018 11/07/2017 Influenza Vaccine (#1) 2025 02/14/2016 Hepatitis C Screening Completed 09/24/2015 Procedures [...] Serum 09/24/2015 8:58 PM CDT Myesha Curtis DRY CURE WORKER LAB BLOOD ORDERA BLES Final Result HISTORICAL RESULTS from Last 3 Months or Most Recently Relevant to Health Maintenance Insurance [employer] Member Subscriber Plan / Payer (Ef fective 2016-Present) Name:PALMER ARORA Relation to Subscriber:Self Name:Palmer Arora Payer ID:[id number] Group ID:Not on file Type:COMMERCIAL Address: [address] [place], [place] MEDICARE MEDICARE [employer] [facility] Member Subscriber Plan / Payer ( fective 2016-Present) Name:PLAMER ARORA Relation to Subscriber:Self Name:Palmer Arora Payer ID:[id number] Group ID:Not on file Type:COMMERCIAL Address: [address] [place], [place] Care Teams Sql Ssrs Ssis Developer Relationship Specialty Start Date End Date Jason Richardson DO [address] [place] [address] PCP - General Family Medicine 06/21/20
[2025-04-09 09:03] LABS: MALB Creatinine Ratio 77.1 mg/g (0-30)
[2025-04-09 09:12] LABS: Hemoglobin A1C 6.5 % (<5.7)
[2025-04-09 09:52] LABS: Alanine Aminotransferase 58 U/L (6-50); Albumin Level 4.7 g/dL (3.5-5.1); Alkaline Phosphatase 53 U/L (38-126); Anion Gap 10 mmol/L (4-12); Aspartate Amino Transferase 35 U/L (17-59); Bilirubin,Total 1.7 mg/dL (0.2-1.3); Blood Urea Nitrogen 18 mg/dL (9-20); Calcium 9.9 mg/dL (8.4-10.2); Carbon Dioxide 30 mmol/L (22-30); Chloride 106 mmol/L (98-107); Cholesterol 162 mg/dL (0-200); Estimated Glomerular Filt Rate > 60; Glucose 92 mg/dL (65-110); HDL Direct 32 mg/dL; Osmolality Calculated 303 mOsm/kg (285-295); Potassium 4.6 mmol/L (3.4-5.0); Sodium 146 mmol/L (137-145); Total Protein 7.0 g/dL (6.3-8.2); Triglycerides 222 mg/dL (<150)
[2025-04-09 10:23] LABS: Prostate Specific Antigen 1.9 ng/mL (< OR = 4.0)
== END 2025-04-09 08:33 | disposition home or self-care (01) ==
LOC: CHSLAB 08:33
PROVIDERS: PCP Nurse Practitioner Family; Visit Provider Nurse Practitioner Family
DX: E11.65 Type 2 diabetes mellitus with hyperglycemia (principal); Z79.4 Long term (current) use of insulin; Z13.6 Encounter for screening for cardiovascular disorders; E78.5 Hyperlipidemia, unspecified; I10 Essential (primary) hypertension; Z12.5 Encounter for screening for malignant neoplasm of prostate
CPT/HCPCS: 36415; 80053; 80061; 82043; 83036; 84153; 85025; G0103